=== PATIENT | female | born 1970 | race Caucasian/White ===

== ENCOUNTER 2017-02-15 12:00 | Inpatient (IN) | payer OTHER ==
[~2017-02-15] VITALS: Ht 167.6 cm; Wt 61.5 kg
--- NOTE | ~2017-02-15 | EEG ---
[facility] [place] [address] ELECTROENCEPHALOGRAM Name: SALVATORE DAY Room #: 436-P [facility] M.R.#: [id number] Admission: 02/15/17 Attend Phys: Jeff Campbell MD Discharge: 02/16/17 Date of : 72 Report #: [id number] THIS REPORT FOR: //name// CC: FAM unknown Jeff Campbell DATE OF SERVICE: 02/16/2017 This patient is being evaluated for the possibility of seizure. EEG was done by placing the electrodes by standard 10-20 system of electrode placement. Both referential and sequential montages were used for recording. Background activity in this patient's EEG is about 11 Hz and 40 microvolt. This patient became drowsy and that is associated with bilateral slowing and few vertex sharp waves. Photic stimulation is unremarkable. Throughout the record, no active epileptiform activity was noticed. IMPRESSION: This patient's EEG is within normal limits. Thank you very much for this referral. <ELECTRONICALLY SIGNED> By: Abraham Jj MD 02/16/171940 19 29 Abraham Jj MD /nt
[~2017-02-15 12:00] MED LIST: NORCO 5-325 TA1 EACH PO
[2017-02-15 12:30] LABS: ABSOLUTE NEUTROPHILS 4.4 thou/uL (1.4-8.2); BASOPHILS 0.9 % (0.0-2.0); EOSINOPHILS 1.9 % (0.0-3.0); HEMATOCRIT 37.9 % (37.0-47.0); HEMOGLOBIN 13.1 gm/dL (12.0-15.0); LYMPHOCYTES 23.6 % (24.0-44.0); MCH 32.2 pg (26.0-34.0); MCHC 34.6 g/dL (28.0-37.0); MCV 93.2 fL (80.0-100.0); MONOCYTES 10.6 % (1.0-8.0); PLATELET COUNT 174 thou/uL (150-400); RBC 4.07 mil/uL (4.20-5.00); RDW 13.3 % (10.5-14.5); WBC 6.9 thou/uL (4.0-11.0)
[2017-02-15 12:32] LABS: MANUAL DIFF NO
[2017-02-15 12:37] LABS: CREATININE 0.6 mg/dL (0.6-1.0)
[2017-02-15 14:55] VITALS: BP 105/57
[2017-02-15 15:42] VITALS: BP 111/60
[2017-02-15 15:53] LABS: AMP/METHAMP Negative (Negative); BARBITURATES Negative (Negative); BENZODIAZEPINES Negative (Negative); COCAINE Negative (Negative); METHADONE Negative (Negative); OPIATES Negative (Negative); PCP Negative (Negative); THC POSITIVE (Negative)
[2017-02-15] MEDS ORDERED: MOBIC7.5 MG PO (16:14)
[2017-02-15] MEDS ORDERED: DILANTIN100 MG PO (17:17)
[2017-02-15] MEDS ORDERED: KEPPRA 500 MG500 M1 PO (17:17)
[2017-02-15] MEDS ORDERED: KLONOPIN0.5 MG PO (17:18)
[2017-02-15] MEDS ORDERED: FLONASE 0.05%50 MCG NASAL (17:40)
[2017-02-15] MEDS ORDERED: COLACE100 MG PO (17:43)
[2017-02-15] MEDS ORDERED: REQUIP 1 MG TABL1 M1 PO (17:43)
[2017-02-15] MEDS ORDERED: PLAVIX 75 MG TA75 M1 PO (17:44)
[2017-02-15] MEDS ORDERED: DAPSONE25 MG PO (17:44)
[2017-02-15] MEDS ORDERED: AMITIZA 24 MCG24 MC1 PO (17:44)
[2017-02-15] MEDS ORDERED: CLARITIN10 MG PO (17:45)
[2017-02-15] MEDS ORDERED: SINGULAIR 10 MG10 M1 PO (17:45)
[2017-02-15] MEDS ORDERED: OXCARBAZEPINE600 MG PO (17:46)
[2017-02-15] MEDS ORDERED: PROTONIX40 M1 PO (17:46)
[2017-02-15] MEDS ORDERED: VITAMIN D 5050000 I1 PO (17:46)
[2017-02-15] MEDS ORDERED: ZOCOR20 MG PO (17:46)
[2017-02-15] MEDS ORDERED: PROAIR RESPICL90 MCG IH (17:47)
[2017-02-15 20:08] VITALS: BP 105/58
[2017-02-16 03:49] VITALS: BP 93/50
[2017-02-16 04:50] LABS: HEMATOCRIT 36.2 % (37.0-47.0); HEMOGLOBIN 12.3 gm/dL (12.0-15.0); MCH 32.1 pg (26.0-34.0); MCHC 33.9 g/dL (28.0-37.0); MCV 94.9 fL (80.0-100.0); RBC 3.82 mil/uL (4.20-5.00); WBC 5.5 thou/uL (4.0-11.0)
[2017-02-16 04:59] LABS: CALCIUM 9.3 mg/dL (8.5-10.1); CREATININE 0.5 mg/dL (0.6-1.0); POTASSIUM 3.7 mmol/L (3.5-5.1)
[2017-02-16 08:45] VITALS: BP 95/58
[2017-02-16 11:52] LABS: FOLIC ACID 3.9 ng/mL (8.6-58.9); TSH 0.908 uIU/mL (0.358-3.740)
[2017-02-16 13:11] VITALS: BP 95/58
[2017-02-16] MEDS ORDERED: FOLIC ACID 1 MG1 MG GT (15:14)
== END 2017-02-16 16:00 | disposition home or self-care (01) | DRG 101 ==
LOC: ER 12:00 → EROBS 14:23 → ER 15:43 → 4S 15:43 → 3N 16:02 → 4S 16:02
PROVIDERS: Emergency Medicine; Internal Medicine; Psychiatry & Neurology Neurology
DX: G40.909 Epilepsy, unspecified, not intractable, without status epilepticus (principal); G25.81 Restless legs syndrome; E78.5 Hyperlipidemia, unspecified; F12.10 Cannabis abuse, uncomplicated; F17.210 Nicotine dependence, cigarettes, uncomplicated; J30.2 Other seasonal allergic rhinitis; Z86.73 Personal history of transient ischemic attack (TIA), and cerebral infarction without residual deficits; Z88.8 Allergy status to other drugs, medicaments and biological substances; Z91.048 Other nonmedicinal substance allergy status
CPT/HCPCS: 10100

== ENCOUNTER 2019-08-14 06:51 | Emergency (ER) | payer OTHER ==
[~2019-08-14] VITALS: Ht 167.6 cm; Wt 68.0 kg
[~2019-08-14 06:51] MED LIST changes: +AMITIZA 24 MCG24 MC1 PO; +CLARITIN10 MG PO; +COLACE100 MG PO; +DAPSONE25 MG PO; +DILANTIN100 MG PO; +FLONASE 0.05%50 MCG NASAL; +FOLIC ACID 1 MG1 MG GT; +KEPPRA 500 MG500 M1 PO; +KLONOPIN0.5 MG PO; +MOBIC7.5 MG PO; +OXCARBAZEPINE600 MG PO; +PLAVIX 75 MG TA75 M1 PO; +PROAIR RESPICL90 MCG IH; +PROTONIX40 M1 PO; +REQUIP 1 MG TABL1 M1 PO; +SINGULAIR 10 MG10 M1 PO; +VITAMIN D 5050000 I1 PO; +ZOCOR20 MG PO
[2019-08-14] MEDS ORDERED: MELOXICAM7.5 MG PO (07:38)
[2019-08-14 08:04] LABS: HEMATOCRIT 38.6 % (37.0-47.0); HEMOGLOBIN 12.8 gm/dL (12.0-15.0); MCH 30.2 pg (26.0-34.0); MCV 91.5 fL (80.0-100.0); RBC 4.22 mil/uL (4.20-5.00); RDW 13.4 % (10.5-14.5)
[2019-08-14 08:09] LABS: CALCIUM 9.1 mg/dL (8.5-10.1); CREATININE 0.7 mg/dL (0.6-1.0); POTASSIUM 3.4 mmol/L (3.5-5.1)
[2019-08-14] MEDS ORDERED: PREDNISONE 20 M20 M1 PO (09:08)
[2019-08-14 09:14] VITALS: BP 108/52
== END 2019-08-14 09:16 | disposition home or self-care (01) ==
LOC: ER 06:51
PROVIDERS: Emergency Medicine
DX: J40 Bronchitis, not specified as acute or chronic (principal); G25.81 Restless legs syndrome; Z86.2 Personal history of diseases of the blood and blood-forming organs and certain disorders involving the immune mechanism; Z90.710 Acquired absence of both cervix and uterus; Z90.49 Acquired absence of other specified parts of digestive tract; Z86.73 Personal history of transient ischemic attack (TIA), and cerebral infarction without residual deficits; Z87.891 Personal history of nicotine dependence; Z91.048 Other nonmedicinal substance allergy status; Z88.8 Allergy status to other drugs, medicaments and biological substances

== ENCOUNTER 2019-09-18 09:45 | Emergency (ER) | payer OTHER ==
[~2019-09-18] VITALS: Ht 167.6 cm; Wt 69.0 kg
[~2019-09-18 09:45] MED LIST changes: +MELOXICAM7.5 MG PO; +PREDNISONE 20 M20 M1 PO
[2019-09-18] MEDS ORDERED: ZANAFLEX2 M1 PO (10:17)
[2019-09-18] MEDS ORDERED: NEURONTIN 300M300 M2 PO (10:18)
[2019-09-18 12:25] VITALS: BP 127/88
== END 2019-09-18 12:25 | disposition home or self-care (01) ==
LOC: ER 09:45
DX: B34.9 Viral infection, unspecified (principal); G40.909 Epilepsy, unspecified, not intractable, without status epilepticus; Z90.710 Acquired absence of both cervix and uterus; Z86.73 Personal history of transient ischemic attack (TIA), and cerebral infarction without residual deficits; Z98.890 Other specified postprocedural states; Z79.899 Other long term (current) drug therapy; Z91.048 Other nonmedicinal substance allergy status; Z91.018 Allergy to other foods; Z88.8 Allergy status to other drugs, medicaments and biological substances; Z87.891 Personal history of nicotine dependence; Z90.49 Acquired absence of other specified parts of digestive tract

== ENCOUNTER 2019-12-06 15:28 | Emergency (ER) | payer OTHER ==
[~2019-12-06] VITALS: Ht 167.6 cm; Wt 68.0 kg
[~2019-12-06 15:28] MED LIST changes: +NEURONTIN 300M300 M2 PO; +ZANAFLEX2 M1 PO
[2019-12-06] MEDS ORDERED: NAPROSYN500 MG PO (17:51)
[2019-12-06] MEDS ORDERED: MEDROLDOSEPACK PO (17:51)
[2019-12-06 18:16] VITALS: BP 135/76
== END 2019-12-06 18:17 | disposition home or self-care (01) ==
LOC: ER 15:28
DX: M25.551 Pain in right hip (principal); G25.81 Restless legs syndrome; Z87.891 Personal history of nicotine dependence; Z88.8 Allergy status to other drugs, medicaments and biological substances; Z79.899 Other long term (current) drug therapy; Z90.710 Acquired absence of both cervix and uterus; Z90.89 Acquired absence of other organs; Z98.890 Other specified postprocedural states; Z86.73 Personal history of transient ischemic attack (TIA), and cerebral infarction without residual deficits

== ENCOUNTER 2019-12-10 12:18 | Emergency (ER) | payer OTHER ==
[~2019-12-10] VITALS: Ht 167.6 cm; Wt 68.0 kg
[~2019-12-10 12:18] MED LIST changes: +MEDROLDOSEPACK PO; +NAPROSYN500 MG PO
[2019-12-10 12:29] VITALS: BP 145/72
--- NOTE | 2019-12-10 12:45 | NUR ---
DR JANG AT [facility] SENT THE PT TO THE ED DUE TO THE PT C/O FACIAL NUMBNESS AND RIGHT ARM "HERKY JERKY" MOVEMENTS. HE STATED HE DID NOT TREAT THE PT.
[2019-12-10 13:09] LABS: ABSOLUTE NEUTROPHILS 6.7 thou/uL (1.4-8.2); BASOPHILS 0.8 % (0.0-2.0); EOSINOPHILS 0.1 % (0.0-3.0); HEMATOCRIT 41.9 % (37.0-47.0); HEMOGLOBIN 14.2 gm/dL (12.0-15.0); LYMPHOCYTES 20.5 % (24.0-44.0); MCH 31.5 pg (26.0-34.0); MCHC 33.8 g/dL (28.0-37.0); PLATELET COUNT 152 thou/uL (150-400); POLYS 69.6 % (36.0-66.0); RDW 13.8 % (10.5-14.5); WBC 9.7 thou/uL (4.0-11.0)
[2019-12-10 13:18] LABS: ANION GAP 5 mmol/L (7-16); BUN 21 mg/dL (7-18); CALCIUM 9.3 mg/dL (8.5-10.1); CHLORIDE 102 mmol/L (98-107); CO2 29 mmol/L (21-32); CREATININE 0.9 mg/dL (0.6-1.0); GLUCOSE 100 mg/dL (74-106); POTASSIUM 3.8 mmol/L (3.5-5.1); SODIUM 136 mmol/L (136-145)
[2019-12-10 13:28] LABS: ALBUMIN 4.1 g/dL (3.4-5.0); SGOT 15 U/L (15-37); SGPT 19 U/L (30-65); TOTAL BILIRUBIN 0.7 mg/dL (0.2-1.0); TROPONIN-I <0.06 ng/mL (<0.06)
[2019-12-10 13:35] LABS: INR 1.1; PROTIME 10.8 Seconds (9.3-11.4)
[2019-12-10 14:26] LABS: URINE BILIRUBIN NEGATIVE (Negative); URINE BLOOD 1+ (Negative); URINE CLARITY CLEAR; URINE COLOR YELLOW; URINE GLUCOSE-RANDOM* NEGATIVE (Negative); URINE KETONES NEGATIVE (Negative); URINE LEUKOCYTES-REFLEX NEGATIVE (Negative); URINE NITRITE-REFLEX NEGATIVE (Negative); URINE PROTEIN (DIPSTICK) NEGATIVE (Negative); URINE UROBILINOGEN 0.2 E.U./dl (0.2-1.0)
[2019-12-10 14:45] LABS: AMP/METHAMP Negative (Negative); BARBITURATES Negative (Negative); BENZODIAZEPINES Negative (Negative); COCAINE POSITIVE (Negative); METHADONE Negative (Negative); OPIATES Negative (Negative); PCP Negative (Negative)
[2019-12-10 14:46] LABS: SQUAMOUS 4-10 Moderate /LPF (0-3); URINE RBC 3-10 Few /HPF (0-2); URINE WBC-REFLEX 0-5 Rare /HPF (0-5)
[2019-12-10 14:47] LABS: BACTERIA-REFLEX 1-9 Few /HPF (None Seen); CASTS None Seen /LPF (None Seen); CRYSTALS None Seen /LPF (None Seen)
[2019-12-10 16:42] VITALS: BP 135/83
[2019-12-10 19:17] VITALS: BP 140/68
--- NOTE | 2019-12-19 12:02 | HC ---
[facility] [place] [address] CONSULTATION Name: SALVATORE DAY Room #: DEP [facility]#: [id number] Admission: 12/10/19 Attend Phys: Discharge: 12/10/19 Date of : 72 Report #: [id number] THIS REPORT FOR: cc: ERLINDA - No family physician/PCP ERLINDA - No family physician/PCP Abraham Giraldo MD ~ CC: Bernard Grigsby [facility] physician/PCP DATE OF SERVICE: 12/10/2019 HISTORY OF PRESENT ILLNESS: This is a 49-year-old female patient who was evaluated by me for stroke. This patient has a very poor history. This is also a complicated history. Many of the things she says she does not remember. She indicates that she goes to a neurologist at [facility], but she does not remember her name. She indicates she used to go to Dr. Andrew, a neurologist at [place], but she is not going to him anymore. She indicated that she has been to epileptologist, Dr. Kaur at [facility], but she will never go back to him. She would not explain why she would not go to him, but she used all kind of language. I did not get any history in that regard. She said she has a history of at least 3 strokes. What she had during those strokes which hospital she was in is not clear because she said she does not remember. Two of the strokes she said she found out when she was in the hospital. She has a vagus nerve stimulator, but I cannot get a history who is managing at and who put it in. All of it makes the things very difficult. Present history is that she has a speech difficulty for about 2-3 days. Some of the records indicate it is about 1 week, but she tells me it is much smaller in duration. I do not know how long her weakness is going on, probably for 1 day. It started spontaneously without any trauma. She said she had some weakness, even before. History of seizure is not very good, but she does not believe she has any problem at the moment. REVIEW OF SYSTEMS: Positive for anxiety and depression, which she says is because of her posttraumatic stress disorder. She has a very difficult speech and is very difficult to understand that. She said she is on methylprednisolone. She is also on Keppra. She is also on oxcarbazepine. She is also on clonazepam. She indicated that at one time she had hepatitis C and it was 20 years ago and one of the stroke occurred because of that. To me she tells me that she just has a vagus nerve stimulator. There is some history that she has a baclofen pump, but she is not sure about it. Most of the time she keeps telling me that she does not know. She does have a history of celiac disease. Her speech is very unusual. She does have a history of anemia. This was a relevant 14-point review of system. [address] [address] CONSULTATION Name: SALVATORE DAY Room #: DEP [facility]#: [id number] Admission: 12/10/19 Attend Phys: Discharge: 12/10/19 Date of : 72 Report #: [id number] PAST MEDICAL HISTORY: Positive for multiple problems. Some of them are summarized above. SOCIAL HISTORY: She says she drinks about 1 alcoholic drink every other day. She does have some permit for marijuana as I understand. She says she used to smoke, but she stopped smoking 3 years ago. The patient's examination indicates that she is alert. She is responsive. She can tell me what month it is. She knows what hospital she is in. She has a very unusual speech. On my examination, cranial nerve examination does not appear to be showing any abnormality. When I asked her to lift her right upper and right lower extremity, she said she cannot do it. When I do the position sense, it is normal. Her reflexes are symmetrical. Cardiac and respiratory examinations appear unremarkable. Her GFR is [address] and that is unremarkable. IMPRESSION: It is not convincing that this patient's symptoms are organic in nature. She needs some further workup. Our MRI as I understand from them is not compatible with the vagus nerve stimulator. We also need to find out whether she really has a baclofen pump or not and whether that is compatible with MRI or not or whether we need to start it. We have no way of readjusting the vagus nerve stimulator here. If required, we do not have any video monitored EEG. I do not think we can offer her much here. She needs further workup. Strokes need to be excluded, although the symptoms are not typical. I think it will be desirable to get her to some tertiary care facility where MRI is compatible with a vagus nerve stimulator and we need to find out whether she has a baclofen pump with such poor history we can find out and whether that is compatible or can be readjusted after the MRI. It is going to be an involved process. I told her we do not have any facility to do that and I told the Emergency Room doctor that the best is to transfer her to another tertiary care facility where all the above facilities are available and she is going to try to do that. <ELECTRONICALLY SIGNED> By: Abraham Giraldo MD 12/19/19 [id number] Abraham Giraldo MD /lara
== END 2019-12-10 19:20 | disposition short-term general hospital (02) ==
LOC: ER 12:18 → EROBS 14:13 → ER 19:20
PROVIDERS: Physician Assistant
DX: R47.01 Aphasia (principal); R41.0 Disorientation, unspecified; R47.1 Dysarthria and anarthria; R53.1 Weakness; G40.909 Epilepsy, unspecified, not intractable, without status epilepticus; G25.81 Restless legs syndrome; Z86.73 Personal history of transient ischemic attack (TIA), and cerebral infarction without residual deficits; Z87.891 Personal history of nicotine dependence; Z88.8 Allergy status to other drugs, medicaments and biological substances; Z79.899 Other long term (current) drug therapy; Z90.49 Acquired absence of other specified parts of digestive tract; Z98.890 Other specified postprocedural states

== ENCOUNTER 2020-02-02 13:27 | Emergency (ER) | payer OTHER ==
[~2020-02-02] VITALS: Ht 167.6 cm; Wt 68.0 kg
[2020-02-02] MEDS ORDERED: TRIAMCINOLONE A80 G2 TOP (13:49)
[2020-02-02] MEDS ORDERED: PREDNISONE 20 M20 M1 PO (13:49)
[2020-02-02 14:10] VITALS: BP 100/59
[2020-02-02] MEDS ORDERED: PREDNISONE 20 M20 MG PO (14:35)
== END 2020-02-02 14:10 | disposition home or self-care (01) ==
LOC: ER 13:27
DX: L30.9 Dermatitis, unspecified (principal); Z90.49 Acquired absence of other specified parts of digestive tract; Z87.891 Personal history of nicotine dependence; Z90.710 Acquired absence of both cervix and uterus; Z79.899 Other long term (current) drug therapy; Z88.8 Allergy status to other drugs, medicaments and biological substances; Z91.09 Other allergy status, other than to drugs and biological substances; Z91.048 Other nonmedicinal substance allergy status

== ENCOUNTER 2020-02-17 14:41 | Emergency (ER) | payer OTHER ==
[~2020-02-17] VITALS: Ht 167.6 cm; Wt 68.0 kg
[~2020-02-17 14:41] MED LIST changes: +PREDNISONE 20 M20 MG PO; +TRIAMCINOLONE A80 G2 TOP
[2020-02-17 17:03] LABS: ABSOLUTE NEUTROPHILS 6.8 thou/uL (1.4-8.2); BASOPHILS 0.8 % (0.0-2.0); EOSINOPHILS 2.5 % (0.0-3.0); HEMATOCRIT 37.5 % (37.0-47.0); HEMOGLOBIN 12.9 gm/dL (12.0-15.0); LYMPHOCYTES 17.4 % (24.0-44.0); MCHC 34.5 g/dL (28.0-37.0); MCV 92.8 fL (80.0-100.0); MONOCYTES 8.9 % (1.0-8.0); PLATELET COUNT 202 thou/uL (150-400); POLYS 70.4 % (36.0-66.0); RBC 4.05 mil/uL (4.20-5.00); RDW 13.5 % (10.5-14.5); WBC 9.6 thou/uL (4.0-11.0)
[2020-02-17 17:22] LABS: ALBUMIN 3.3 g/dL (3.4-5.0); CALCIUM 8.8 mg/dL (8.5-10.1); CREATININE 0.7 mg/dL (0.6-1.0); POTASSIUM 3.4 mmol/L (3.5-5.1); TOTAL BILIRUBIN 0.4 mg/dL (0.2-1.0); TOTAL PROTEIN 6.8 g/dL (6.4-8.2)
[2020-02-17] MEDS ORDERED: HYDROCODON-ACE1 EAC7 PO (17:52)
[2020-02-17 18:03] VITALS: BP 113/78
[2020-02-17] MEDS ORDERED: PREDNISONE 5 MG5 M1 PO (18:42)
== END 2020-02-17 18:04 | disposition home or self-care (01) ==
LOC: ER 14:41
PROVIDERS: Nurse Practitioner
DX: G89.18 Other acute postprocedural pain (principal); M25.561 Pain in right knee; M25.461 Effusion, right knee; Z90.710 Acquired absence of both cervix and uterus; Z90.49 Acquired absence of other specified parts of digestive tract; Z86.2 Personal history of diseases of the blood and blood-forming organs and certain disorders involving the immune mechanism; Z79.899 Other long term (current) drug therapy; Z87.891 Personal history of nicotine dependence; Z88.8 Allergy status to other drugs, medicaments and biological substances; Z91.048 Other nonmedicinal substance allergy status; Z91.09 Other allergy status, other than to drugs and biological substances

== ENCOUNTER 2020-12-08 12:48 | Emergency (ER) | payer OTHER ==
[~2020-12-08] VITALS: Ht 170.2 cm; Wt 63.5 kg
[~2020-12-08 12:48] MED LIST changes: +HYDROCODON-ACE1 EAC7 PO; +PREDNISONE 5 MG5 M1 PO
[2020-12-08] MEDS ORDERED: BACTRIM DS TAB1 EACH PO (14:53)
[2020-12-08] MEDS ORDERED: AUGMENTIN 875-1 EACH PO (14:53)
[2020-12-08 15:00] VITALS: BP 118/70
== END 2020-12-08 15:02 | disposition home or self-care (01) ==
LOC: ER 12:48
DX: H57.89 Other specified disorders of eye and adnexa (principal); F17.210 Nicotine dependence, cigarettes, uncomplicated; J34.89 Other specified disorders of nose and nasal sinuses; Z86.2 Personal history of diseases of the blood and blood-forming organs and certain disorders involving the immune mechanism; Z90.710 Acquired absence of both cervix and uterus; Z90.49 Acquired absence of other specified parts of digestive tract; Z90.89 Acquired absence of other organs; Z98.890 Other specified postprocedural states; Z88.8 Allergy status to other drugs, medicaments and biological substances; Z91.048 Other nonmedicinal substance allergy status